=== PATIENT | male | born 1985 | race Caucasian/White ===

== ENCOUNTER 2021-08-12 12:46 | Emergency (ER) | payer OTHER, SELFPAY ==
[2021-08-12 12:47] VITALS: BP 115/87; PULSE 98; RESP 18; TEMP 35.6; O2SAT 98; BMI 34.0
--- NOTE | 2021-08-12 13:13 | EDS_ITS ---
HPI History of Present Illness Chief Complaint: Cough Detail of Chief Complaint: Hemoptysis that started today Informant: patient Narrative Narrative: Patient presents to the emergency department with complaint of hemoptysis x2 today. Patient states that he was diagnosed with COVID-19 5 days ago but has had symptoms for about a week. Patient denies significant shortness of breath. He does describe body aches and headache. He denies loss of taste or smell. Patient has no medical history otherwise. He denies chest pain. Prior similar symptoms: No PFSH PFSH Medical History no medical history Allergy/AdvReac Type Severity Reaction Status Date / Time No Known Allergies Allergy Verified 08/12/21 12:49 Surgical History no surgical history Social History Smoking Status: Never smoker ROS ROS ED Constitutional Constitutional ED: Reports systems reviewed and no addt'l complaints, except as documented; Denies body ache(s), change in weight or chills Eyes Eyes: Denies acute decrease in peripheral vision, change in vision, double vision or loss of vision ENT ENT ED: Reports none; Denies ear pain, lip swelling, loss taste/smell, neck pain, otalgia or sore throat Cardiovascular Cardiovascular: Reports none; Denies abdominal pain, chest pain with activity, leg edema, lightheadedness, palpitations, rapid heart rate or syncope Respiratory/Chest Respiratory/Chest: Reports none, cough and other Details: Hemoptysis ; Denies change in mental status, dry cough, dyspnea, hemoptysis, shortness of breath at rest or shortness of breath with exertion Gastrointestinal Gastrointestinal: Reports none; Denies abdominal pain, change in stool character, diarrhea, hematemesis, hematochezia, melena, rectal bleeding or vomiting Genitourinary Genitourinary ED: Reports none; Denies abdominal discomfort, anuria, dysuria, genital pain or polyuria Musculoskeletal Musculoskeletal: Reports none and myalgias; Denies arthralgias, back pain, difficulty walking, extremity pain or muscle weakness Integumentary Reports none; Denies abscess or rash Neurologic Neurologic: Reports none and headache(s); Denies abnormal gait, confusion, focal weakness, frequent falls, loss of vision, numbness, paresthesias, radicular pain, vertigo or weakness Psychiatric Psychiatric: Reports systems reviewed and no addt'l complaints, except as documented and none; Denies behavioral changes, confusion, difficulty concentrating, hallucinations, suicidal ideation, tactile hallucinations or visual hallucinations Endocrine Endocrinology: Denies none, cold intolerance, excessive sweating, fatigue or heat intolerance Hematologic/Lymphatic Hematologic/Lymphatic: Reports none; Denies anemia, easy bleeding or easy bruising Allergic/Immunologic Allergic/Immunologic ED: Denies as per HPI, none, lip swelling, mouth swelling, throat swelling, tongue swelling or hives EXAM Physical Exam Const Vital Signs: 08/12/21 12:47 08/12/21 13:32 08/12/21 13:51 Temperature 96.1 F L Temperature Source Temporal Pulse Rate 98 86 Respiratory Rate 18 18 Respiratory Effort Normal Respiratory Depth Normal Respiratory Pattern Normal Blood Pressure 115/87 H Blood Pressure Mean 96 Pulse Ox 98 95 Oxygen Delivery Method Room Air Room Air Room Air Positive well nourished and well developed General Appearance ED: well developed and NAD HEENT Reports TM's clear and moist mucous membranes normocephalic and atraumatic; Negative for trauma or tenderness Tympanic Membrane ED: Yes TM's clear Eyes PERRL and EOMs intact bilaterally General Eye ED: Negative for pale conjunctiva or scleral icterus Neck no lymphadenopathy, supple and no JVD General: Negative for tenderness Chest Wall inspection of chest normal and palpation of chest normal Chest: Negative for tenderness Resp normal respiratory effort and clear to auscultation bilaterally Effort and Inspection: Negative for respiratory distress or pain with movement Auscultation: Negative for rhonchi, wheezes or diminished lung sounds Cardio regular rate, regular rhythm, S1 normal heart sound, S2 normal heart sound and no murmurs Peripheral Pulses: pulses 2+ throughout GI normal to inspection, nondistended, normoactive bowel sounds, soft to palpation, non-tender, non-distended and no masses Back/Spine no CVA tenderness and no thoracic nor lumbar tenderness Extremity normal to inspection General Extremety ED: Negative for edema General Extremity: Negative for edema Neuro oriented x3, CN's II-XII intact bilaterally, no sensory deficits noted and gait normal Sensorium / Orientation: awake, alert, oriented to person, oriented to place and oriented to time Motor Exam: strength 5/5 throughout and strength abnormal Psych mental status grossly normal Skin no rashes or lesions noted and no wounds MDM MDM MDM Narrative Medical decision making narrative: IV line established on arrival. Patient work-up shows that he has got bilateral infiltrates on chest x-ray consistent with Covid pneumonia. CTA was negative for PE. Suspect hemoptysis likely related to irritation from coughing and patient has not had any further hemoptysis in the department. Patient would be interested in monoclonal antibody therapy. He does meet criteria with elevated BMI of 34. Lab Data Attestation: I reviewed the patient's lab results. Labs: Laboratory Results - last 24 hr 08/12/21 08/12/21 08/12/21 13:24 13:24 13:24 WBC 4.5 RBC 5.26 Hgb 15.5 Hct 44.7 MCV 85.0 MCH 29.5 MCHC 34.7 RDW Std Deviation 39.1 RDW Coeff of Maureen 12.6 Plt Count 161 MPV 9.9 Immature Gran % (Auto) 0.400 Neut % (Auto) 72.7 H Lymph % (Auto) 17.5 L [place] % (Auto) 9.0 Eos % (Auto) 0.2 Baso % (Auto) 0.2 Absolute Neuts (auto) 3.2 Absolute Lymphs (auto) 0.78 L Nucleated RBC % 0 D-Dimer Quant (PE/DVT) 0.72 H* Sodium 134 L Potassium 4.2 Chloride 99 Carbon Dioxide 28.0 Anion Gap 7 BUN 17 Creatinine 1.02 Estim Creat Clear Calc 109.89 Est GFR (MDRD) Af Amer 106 Est GFR (MDRD) Non-Af 88 BUN/Creatinine Ratio 16.7 Glucose 96 Lactic Acid Calcium 8.4 L 08/12/21 13:24 WBC RBC Hgb Hct MCV MCH MCHC RDW Std Deviation RDW Coeff of Maureen Plt Count MPV Immature Gran % (Auto) Neut % (Auto) Lymph % (Auto) [place] % (Auto) Eos % (Auto) Baso % (Auto) Absolute Neuts (auto) Absolute Lymphs (auto) Nucleated RBC % D-Dimer Quant (PE/DVT) Sodium Potassium Chloride Carbon Dioxide Anion Gap BUN Creatinine Estim Creat Clear Calc Est GFR (MDRD) Af Amer Est GFR (MDRD) Non-Af BUN/Creatinine Ratio Glucose Lactic Acid 1.2 Calcium Radiography Chest X-Ray - ED: 1 View Diagnostic Testing: Clinical Impression(s) from Imaging Studies Chest X-Ray 08/12/21 13:33 IMPRESSION: Bilateral Covid pneumonia. Electronically Signed: Jorge Nettles MD at 14:35 EDT Tel , Service support , Chest CTA 08/12/21 13:52 IMPRESSION: CTA chest examination, without a demonstrated pulmonary embolism or arterial dissection. Bilateral pneumonia. Electronically Signed: José Miguel Hoang MD at 14:34 EDT , Service support , 1 view chest x-ray obtained interpreted by myself as bilateral infiltrates. Radiology in agreement. Discharge Plan Triage Chief Complaint: Cough ED Provider: Shady Lynch Dx/Rx/DC Orders Clinical Impression: Pneumonia due to 2019 novel coronavirus, Hemoptysis Instructions: ED Hemoptysis, Caring for Someone Who Has COVID-19 Other Ambulatory Orders: COVID Outpatient Monoclonal Antibody Referral (Routine) Timeframe: 1 Day Facility: [facility] - Location: [facility] Ordered By: Dr. Shady Lynch Disposition Disposition: Home, Self Care
[2021-08-12] MEDS: 0.9% Normal Saline 1,000 ML 150 ML IV (13:26)
[2021-08-12 13:32] VITALS: O2SAT 98
--- NOTE | 2021-08-12 13:33 | RAD_ITS ---
STUDY: X-RAY CHEST REASON FOR EXAM: Male, 35 years old. cough TECHNIQUE: Frontal portable view of the chest COMPARISON: None. FINDINGS: There are multifocal ill-defined bilateral nodular opacities. There is no pneumothorax, pulmonary edema or pleural effusions. Lungs are underinflated. RAD/Chest 1 View (Portable) IMPRESSION: Bilateral Covid pneumonia. Electronically Signed: Jorge Nettles MD at 14:35 EDT Tel , Service support ,
[2021-08-12 13:36] LABS: Absolute Lymphocyte Count 0.78 X10^3/uL (0.83-4.51); Absolute Neutrophil Count 3.2 X10^3/uL (2.0-7.7); Basophil# 0.01 X10^3/uL; Basophil% 0.2 % (0-1); Eosinophil# 0.01 X10^3/uL; Eosinophils% 0.2 % (0-5); Hematocrit 44.7 % (40-54); Hemoglobin 15.5 g/dL (13.0-16.5); Lymphocyte # 0.78 X10^3/ul (0.83-4.51); Lymphocyte % 17.5 % (19-41); Mean Corp Hgb Conc 34.7 g/dL (32-36); Mean Corpuscular Hgb 29.5 pg (27.0-32.0); Mean Platelet Vol. 9.9 fl (6.2-12.0); NRBC Flagged by Analyzer 0 % (0-5); Neutrophil # 3.24 X10^3/uL (2.7-7.7); Neutrophil % 72.7 % (47-70); Platelet Count 161 K/mm3 (150-450); RBC Distribution Width CV 12.6 % (11.6-14.6); RBC Distribution Width SD 39.1 fl (35.1-43.9); Red Blood Count 5.26 M/mm3 (4.6-6.2); White Blood Count 4.5 K/mm3 (4.4-11.0)
[2021-08-12 13:51] VITALS: PULSE 86; RESP 18; O2SAT 95
[2021-08-12 13:51] LABS: D-Dimer Quantitative (DVT/PE) 0.72 FEU/ug/m (0.27-0.49)
--- NOTE | 2021-08-12 13:52 | CT_ITS ---
STUDY: CTA CHEST REASON FOR EXAM: Male, 35 years old. Hemoptysis, elevated d-dimer, covid RADIATION DOSAGE (If Supplied By Facility): CTDIvol = ( 12.66 ) mGy, DLP = ( 461.79 ) mGycm TECHNIQUE: The examination was performed with the intravenous administration of 100mL [id number]-[id number]. Post-processing of the angiographic images was performed, with multiplanar reformation and 3D reconstruction. Individualized dose optimization techniques were used for this CT. COMPARISON: Chest x-ray FINDINGS: There is limited enhancement of the main pulmonary artery and right and left pulmonary arteries. There is limited enhancement of the bilateral peripheral pulmonary arteries. There is no demonstrated pulmonary embolism. Normal thoracic aorta and visualized great vessels. There is no demonstrated aortic dissection. Normal heart and pericardium. Normal mediastinum. Normal hilar regions. Normal visualized trachea and bronchi. The lungs are well expanded. There are moderate patchy groundglass and airspace opacities of the lungs. Normal pleura. Normal chest wall structures. Normal osseous structures. Normal visualized upper abdomen. CT/CTA Chest W/WO Contrast IMPRESSION: CTA chest examination, without a demonstrated pulmonary embolism or arterial dissection. Bilateral pneumonia. Electronically Signed: José Miguel Hoang MD at 14:34 EDT , Service support ,
[2021-08-12 13:54] LABS: Anion Gap 7 (5-15); BUN 17 mg/dL (7-18); BUN/Creat Ratio 16.7 RATIO (10-20); Calcium,Total 8.4 mg/dL (8.5-10.1); Chloride 99 mmol/L (98-107); Creatinine, Serum 1.02 mg/dL (0.70-1.30); EST Glomerular Filtration Rate 88 mL/min (>60); Est Glom Filt Rate - Afr Amer 106 mL/min (>60); Estimated Creatinine Clearance 109.89 ml/min; Glucose 96 mg/dL (74-106); Potassium 4.2 mmol/L (3.5-5.1); Sodium Level 134 mmol/L (136-145)
[2021-08-12 14:00] LABS: Lactic Acid 1.2 mmol/L (0.4-1.9)
[2021-08-12 15:11] VITALS: PULSE 78; RESP 16; O2SAT 96
== END 2021-08-12 15:25 | disposition home or self-care (01) ==
PROVIDERS: Emergency Provider Emergency Medicine
DX: U07.1 COVID-19 (principal); J12.82 Pneumonia due to coronavirus disease 2019; R04.2 Hemoptysis
CPT/HCPCS: 71045; 71275; 80048; 83605; 85025; 85379; 96360; 96361; 99283; J7030; Q9967